=== PATIENT | female | born 2000 | race Caucasian/White ===

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

== ENCOUNTER → 2021-01-06 | Outpatient (REF) | payer OTHER ==
[2021-01-06 18:17] LABS: HEMATOCRIT 36.6 % (36.0-47.0); HEMOGLOBIN 12.5 g/dl (12.0-15.5); MEAN CORPUSCULAR HEMOGLOBIN 32.2 pg (27.0-33.0); MEAN CORPUSCULAR HGB CONC 34.2 g/dl (32.0-36.5); MEAN CORPUSCULAR VOLUME 94.3 fl (80.0-96.0); PLATELET COUNT, AUTOMATED 226 10^3/uL (150-450); RED BLOOD COUNT 3.88 10^6/uL (4.00-5.40); WHITE BLOOD COUNT 14.5 10^3/uL (4.0-10.0)
[2021-01-06 18:31] LABS: CREATININE,RANDOM URINE 41.4 MG/DL; TOTAL PROTEIN,RANDOM URINE 7.5 MG/DL (0.0-12.0)
[2021-01-06 18:35] LABS: ALT/SGPT 15 U/L (12-78); BILIRUBIN,TOTAL 0.6 MG/DL (0.2-1.0); CREATININE FOR GFR 0.58 MG/DL (0.55-1.30); LDH LACTATE DEHYDROGENASE 147 U/L (84-246); URIC ACID 3.1 MG/DL (2.6-6.0)
== END ==
LOC: M LAB REF 17:38
PROVIDERS: ATTEND Obstetrics & Gynecology
DX: Z34.02 Encounter for supervision of normal first pregnancy, second trimester (principal)

== ENCOUNTER → 2021-01-08 | Outpatient (REF) | payer OTHER ==
[2021-01-08 14:44] LABS: CREATININE, URINE 90.6 MG/DL; URINE TOTAL PROTEIN 15.3 MG/DL (0-12)
[2021-01-08 14:47] LABS: CREATININE 24 HOUR, URINE 1177.8 MG/24HR (600-1800)
[2021-01-08 14:48] LABS: TOTAL PROTEIN 24 HOUR URINE 198.9 MG/24HR (50-150)
== END ==
LOC: M LAB REF 13:58
PROVIDERS: ATTEND Obstetrics & Gynecology
DX: Z36.89 Encounter for other specified antenatal screening (principal)

== ENCOUNTER → 2021-01-18 | Outpatient (CLI) | payer OTHER ==
[2021-01-18 13:15] LABS: HEMATOCRIT 35.4 % (36.0-47.0); HEMOGLOBIN 11.7 g/dl (12.0-15.5); MEAN CORPUSCULAR HEMOGLOBIN 31.2 pg (27.0-33.0); MEAN CORPUSCULAR HGB CONC 33.1 g/dl (32.0-36.5); MEAN CORPUSCULAR VOLUME 94.4 fl (80.0-96.0); PLATELET COUNT, AUTOMATED 205 10^3/uL (150-450); RED BLOOD COUNT 3.75 10^6/uL (4.00-5.40)
== END ==
LOC: M LAB 11:22
PROVIDERS: ATTEND Obstetrics & Gynecology
DX: Z34.02 Encounter for supervision of normal first pregnancy, second trimester (principal)

== ENCOUNTER 2021-02-03 14:57 | Outpatient (CLI) | payer OTHER ==
[~2021-02-03] VITALS: Ht 154.9 cm; Wt 61.6 kg
[2021-02-03 15:18] VITALS: BP 133/75
[2021-02-03 15:40] VITALS: BP 120/55
[2021-02-03] MEDS ORDERED: PRENTAB9 PO (15:54)
[2021-02-03] MEDS ORDERED: FIOR1CAP PO (15:54)
[2021-02-03 16:00] VITALS: BP 142/58
[2021-02-03 16:20] VITALS: BP 118/56
[2021-02-03] MEDS ORDERED: METOCLOPRAMIDE INJ 10MG/2ML VIAL (J2765 PER 1) IV ONE (16:45)
[2021-02-03] MEDS ORDERED: FIORICET TAB PO ONE (16:45)
[2021-02-03 17:02] VITALS: BP 122/62
--- NOTE | 2021-02-03 18:32 | IPN ---
PROGRESS NOTE DATE: 02/03/2021 SUBJECTIVE: Petty is a 20-year-old 1, para 0 and 30-4/7 weeks gestation, EDC 04/10/2021 based on first trimester ultrasound. She presents to labor and delivery today with report of headache. This headache has been occurring pretty much daily since the onset of her . It used to be resolved by Tylenol. She also has been given a prescription for Fioricet three weeks ago which had resolved the headaches recently until today. She took Fioricet at 12:00 noon, ate lunch, took a nap and woke up with the headache still in the same place, not relieved. She does report the headache is an 8/10 although she is smiling, giggling and talkative. She reports positive movement. Denies vaginal bleeding, leakage of fluid, and contractions. She also reports that her hands are swollen. Her care was initiated at [facility] in the first trimester. Her course has been complicated by a report of edema. She has no edema noted today. OBSTETRIC HISTORY: Prima . OBSTETRIC LABS: Blood type is A+. Antibody screen is negative. Rubella immune. VDRL nonreactive. Urine culture no growth. Hepatitis B surface antigen negative. Hepatitis C antibody nonreactive. HIV negative. Gonorrhea and chlamydia negative. Panorama testing: Low risk for aneuploidies, female fetus, gestational diabetic screening 108 on 01/06/2021. She did undergo preeclamptic profile although her blood pressure was normotensive. Her creatinine was 0.58. Uric acid 3.1. AST 13, ALT 15, spot urine 0.18 and 24-hour urine for protein 198.9. PAST MEDICAL HISTORY: Uncomplicated. PAST SURGICAL HISTORY: None. FAMILY HISTORY: Diabetes, arthritis, hypertension, PDA, aortic arch malformation, heart murmur, VSD, heart disease, cancer, and myocardial infarction. SOCIAL HISTORY: She is . She denies tobacco use, alcohol use, and drug use. No history of sexually transmitted infections and she denies history of abuse, physical, and emotional. OBJECTIVE: Upon arrival to labor and delivery today, temperature 98.3, pulse 84, respirations 16, blood pressure 133/75 with a repeat of 120/55. The heart rate is 140 with moderate variability, positive accelerations, no decelerations observed. There is no pattern of regular contractions. Sterile vaginal exam deferred. ASSESSMENT: Intrauterine at 38 weeks and 4/7 day. heart rate category 1, headache. PLAN: Saline lock, Fioricet two tablets and Reglan 10 mg IV, and observe. We will reassess in two hours.
== END 2021-02-03 18:15 | disposition home or self-care (01) ==
LOC: M LDO 14:57
PROVIDERS: ATTEND Advanced Practice Midwife
DX: O26.893 Other specified pregnancy related conditions, third trimester (principal); R51.9 Headache, unspecified; Z3A.38 38 weeks gestation of pregnancy
CPT/HCPCS: 59025; 96374; G0378; G0463; J2765

== ENCOUNTER → 2021-03-18 | Outpatient (REF) | payer OTHER ==
[~2021-03-18] MED LIST: FIOR1CAP PO; PRENTAB9 PO
== END ==
LOC: M LAB REF 12:53
PROVIDERS: ATTEND Advanced Practice Midwife
DX: Z36.85 Encounter for antenatal screening for Streptococcus B (principal); Z3A.00 Weeks of gestation of pregnancy not specified